=== PATIENT | male | born 1950 | race Two or more races ===

== ENCOUNTER 2018-06-25 14:49 | Emergency (ER) | payer MEDICARE, MEDICAID ==
[~2018-06-25] VITALS: Ht 172.7 cm; Wt 50.3 kg
[~2018-06-25 14:49] MED LIST: ASPI-605 PO; CLON2TAB11 PO; FLUO-120 PO; LOSA1TAB3 PO; OLAN5TAB3 PO; SIMV40TA5 PO; TAMS0.4C34 PO; TEMA30CA PO
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
--- NOTE | 2018-06-25 15:11 | NUR ---
PRIYA HARO AT BEDSIDE
--- NOTE | 2018-06-25 15:41 | NUR ---
PT WHEELED OUT FOR CT SCAN
--- NOTE | 2018-06-25 17:00 | NUR ---
Patient discharged to home in stable condition. Written and verbal after care instructions given. Patient verbalizes understanding of instruction.
[2018-06-25 17:13] VITALS: BP 163/92
== END 2018-06-25 17:05 | disposition home or self-care (01) ==
LOC: ER 14:53
DX: S01.01XA Laceration without foreign body of scalp, initial encounter (principal); S09.8XXA Other specified injuries of head, initial encounter; R51 Headache; I10 Essential (primary) hypertension; F41.9 Anxiety disorder, unspecified; F32.9 Major depressive disorder, single episode, unspecified; N40.0 Benign prostatic hyperplasia without lower urinary tract symptoms; Z79.82 Long term (current) use of aspirin; V49.49XA Driver injured in collision with other motor vehicles in traffic accident, initial encounter; Y93.89 Activity, other specified; Y92.410 Unspecified street and highway as the place of occurrence of the external cause; Y99.8 Other external cause status
CPT/HCPCS: 12002; 70450; 71045; 99284; A4606; A6402; A6403

== ENCOUNTER 2018-07-04 15:35 | Emergency (ER) | payer MEDICARE, MEDICAID ==
[~2018-07-04] VITALS: Ht 162.6 cm; Wt 58.1 kg
[2018-07-04 15:39] VITALS: BP 142/89
--- NOTE | 2018-07-04 16:08 | NUR ---
Patient discharged to home in stable condition. Written and verbal after care instructions given. Patient verbalizes understanding of instruction.
== END 2018-07-04 16:11 | disposition home or self-care (01) ==
LOC: ER 15:40
DX: S01.01XD Laceration without foreign body of scalp, subsequent encounter (principal); F17.200 Nicotine dependence, unspecified, uncomplicated; J44.9 Chronic obstructive pulmonary disease, unspecified; I10 Essential (primary) hypertension; N40.0 Benign prostatic hyperplasia without lower urinary tract symptoms; Z79.82 Long term (current) use of aspirin; V49.49XD Driver injured in collision with other motor vehicles in traffic accident, subsequent encounter
CPT/HCPCS: 99281; 99406; A6402; Z7502